=== PATIENT | female | born 1935 | race Hispanic/Latino ===

== ENCOUNTER 2017-09-07 15:25 | Inpatient (IN) | payer MEDICARE, OTHER ==
[~2017-09-07] VITALS: Ht 165.1 cm; Wt 57.2 kg
[2017-09-07] MEDS ORDERED: SODIUM CHLORIDE 0.9% 1000ML 1,000 ML IV ONE (16:00)
[2017-09-07 16:01] LABS: BASOPHILS # (AUTO) 0.1 (0.0-0.1); BASOPHILS % 0.6 % (0.0-1.0); EOSINOPHILS # (AUTO) 0.3 (0.0-0.4); EOSINOPHILS % 3.8 % (0.0-6.0); HEMATOCRIT 35.8 % (34.2-44.1); HEMOGLOBIN 11.7 g/dL (12.0-16.0); LYMPHOCYTES # (AUTO) 1.4 (1.0-3.2); LYMPHOCYTES % 18.4 % (18.0-39.1); MEAN CORPUSCULAR HEMOGLOBIN 27.2 pg (28-32); MEAN CORPUSCULAR HGB CONC 32.7 g/dL (31-35); MEAN CORPUSCULAR VOLUME 83.3 fL (81-99); MONOCYTES # (AUTO) 0.9 (0.2-0.8); NEUTROPHILS # (AUTO) 5.1 (2.1-6.9); NEUTROPHILS % 65.7 % (38.7-80.0); PLATELET COUNT 192 x10e3/uL (140-360); RED CELL DISTRIBUTION WIDTH 18.1 % (11.7-14.4)
[2017-09-07 16:15] LABS: ALANINE AMINOTRANSFERASE 14 IU/L (0-55); ALBUMIN 3.9 g/dL (3.5-5.0); ALBUMIN/GLOBULIN RATIO 1.1 (0.8-2.0); ALKALINE PHOSPHATASE 70 IU/L (40-150); ANION GAP 18.8 mmol/L (8-16); BLOOD UREA NITROGEN 16 mg/dL (7-26); BUN/CREATININE RATIO 20 (6-25); CALCIUM 9.6 mg/dL (8.4-10.2); CARBON DIOXIDE 21 mmol/L (22-29); CHLORIDE 100 mmol/L (98-107); CREATININE, SERUM 0.82 mg/dL (0.57-1.11); EST GLOMERULAR FILTRATION RATE > 60 ML/MIN (60-); GLUCOSE 151 mg/dL (74-118); PHOSPHORUS 3.4 MG/DL (2.3-4.7); POTASSIUM 4.8 mmol/L (3.5-5.1); SODIUM 135 mmol/L (136-145)
[2017-09-07] MEDS ORDERED: ONDANSETRON HCL INJ 2 MG/ML VIAL IV STA (16:21)
[2017-09-07] MEDS ORDERED: MORPHINE SULFATE INJ 4 MG/ML INJ IV STA (16:21)
[2017-09-07] MEDS ORDERED: DIAZEPAM 2 MG TAB PO ONE (17:15)
--- NOTE | 2017-09-07 17:18 | Diagnostic Imaging Report ---
PROCEDURE: A single AP view of the chest. COMPARISON: None. INDICATIONS: high blood pressure FINDINGS: Lines/tubes: None. Lungs: The lungs are hypoinflated. Perihilar vascular crowding and atelectasis. Mild central pulmonary venous congestion. Pleura: There is no pleural effusion or pneumothorax. Heart and mediastinum: The heart and the mediastinum are unremarkable. Significant aortic valve calcifications. Bones: No acute bony abnormality. IMPRESSION: Central pulmonary venous congestion. Dictated by: Juma Rao M.D. on 09/07/2017 at 17:23 Electronically approved by: Juma Rao M.D. on 09/07/2017 at 17:23
--- NOTE | 2017-09-07 18:42 | Diagnostic Imaging Report ---
History:Dizziness Comparison studies: None Technique: Axial images were obtained from the skull base to the vertex. Coronal and sagittal images reconstructed from the axial data. Intravenous contrast: None Findings: Scalp/skull: No abnormalities. Extra-axial spaces: No masses. No fluid collections. Brain sulci: Mildly prominent. Ventricles: Mild compensatory dilatation. No hydrocephalus. Parenchyma: No abnormal densities. No masses, hemorrhage, acute or chronic cortical vascular insults. Sellar/suprasellar region: No abnormalities. Craniocervical junction: Patent foramen magnum. No Chiari one malformation. Incidental findings: Atherosclerotic calcifications in the carotid siphons . Impression: No acute abnormalities. Mild age-related generalized volume loss. Signed by: Dr. Christopher Patiño M.D. on 09/07/2017 6:39 PM
[2017-09-07] MEDS ORDERED: ASPIRIN 81 MG CHEW TAB PO ONE (19:00)
[2017-09-07] MEDS ORDERED: ONDANSETRON HCL INJ 2 MG/ML VIAL IV PRN (19:00)
[2017-09-07 19:18] LABS: CREATINE KINASE 108 IU/L (29-168)
[2017-09-07] MEDS: SODIUM CHLORIDE 0.9% 1000ML 1,000 ML IV SCH (20:20)
[2017-09-07 20:53] VITALS: BP 147/66
[2017-09-07 21:00] VITALS: BP 147/66
[2017-09-07] MEDS ORDERED: DIAZEPAM 5 MG TAB PO PRN (21:15)
[2017-09-07] MEDS ORDERED: OMEPRAZOLE20 MG PO (21:45)
[2017-09-07] MEDS ORDERED: GLIMEPIRIDE2 MG PO (21:45)
[2017-09-07] MEDS ORDERED: CARVEDILOL12.5 MG PO (21:45)
[2017-09-07] MEDS ORDERED: BRILINTA90 MG PO (21:45)
[2017-09-07] MEDS ORDERED: METFORMIN HCL500 MG PO (21:45)
[2017-09-07] MEDS ORDERED: LOSARTAN POTASS25 MG PO (21:45)
[2017-09-07] MEDS ORDERED: AMLODIPINE BESYL5 MG PO (21:45)
[2017-09-07] MEDS ORDERED: GABAPENTIN300 MG PO (21:45)
[2017-09-07] MEDS ORDERED: CRESTOR10 MG PO (21:45)
[2017-09-07] MEDS ORDERED: TRADJENTA5 MG PO (21:45)
[2017-09-07] MEDS ORDERED: ARICEPT5 MG PO (21:45)
[2017-09-07] MEDS ORDERED: ASPIR-LOW81 MG PO (21:56)
[2017-09-07] MEDS ORDERED: LEVOTHYROXINE50 MCG PO (21:56)
[2017-09-07] MEDS ORDERED: namzaric PO (22:59)
[2017-09-08] VITALS (9 sets, daily range): BP systolic 126–147; BP diastolic 58–67
[2017-09-08] MEDS: SODIUM CHLORIDE 0.9% 1000ML 1,000 ML IV SCH ×3 (04:36→18:53)
[2017-09-08 05:27] LABS: BASOPHILS % 0.6 % (0.0-1.0); EOSINOPHILS # (AUTO) 0.2 (0.0-0.4); EOSINOPHILS % 3.7 % (0.0-6.0); HEMATOCRIT 32.3 % (34.2-44.1); HEMOGLOBIN 10.3 g/dL (12.0-16.0); LYMPHOCYTES # (AUTO) 1.2 (1.0-3.2); LYMPHOCYTES % 19.1 % (18.0-39.1); MEAN CORPUSCULAR HGB CONC 31.9 g/dL (31-35); MEAN CORPUSCULAR VOLUME 84.8 fL (81-99); MONOCYTES # (AUTO) 0.7 (0.2-0.8); MONOCYTES % 11.5 % (4.4-11.3); NEUTROPHILS # (AUTO) 4.2 (2.1-6.9); NEUTROPHILS % 64.9 % (38.7-80.0); PLATELET COUNT 171 x10e3/uL (140-360); RED BLOOD COUNT 3.81 x10e6/uL (3.6-5.1); RED CELL DISTRIBUTION WIDTH 18.3 % (11.7-14.4)
[2017-09-08 06:03] LABS: ALANINE AMINOTRANSFERASE 10 IU/L (0-55); ALBUMIN 3.2 g/dL (3.5-5.0); ALBUMIN/GLOBULIN RATIO 1.1 (0.8-2.0); ALKALINE PHOSPHATASE 64 IU/L (40-150); ANION GAP 14.3 mmol/L (8-16); BLOOD UREA NITROGEN 13 mg/dL (7-26); BUN/CREATININE RATIO 17 (6-25); CALCIUM 8.4 mg/dL (8.4-10.2); CARBON DIOXIDE 21 mmol/L (22-29); CHLORIDE 109 mmol/L (98-107); CREATINE KINASE 73 IU/L (29-168); CREATININE, SERUM 0.75 mg/dL (0.57-1.11); EST GLOMERULAR FILTRATION RATE > 60 ML/MIN (60-); GLUCOSE 127 mg/dL (74-118); POTASSIUM 4.3 mmol/L (3.5-5.1); SODIUM 140 mmol/L (136-145)
[2017-09-08 08:07] LABS: CHOL/HDL RATIO 2.1 (3.0-3.6)
--- NOTE | 2017-09-08 10:31 | Consultation ---
DATE OF CONSULTATION: September 08, 2017 CARDIOLOGY CONSULTATION REQUESTING PHYSICIAN: Dr. Bryon Estevez REASON FOR CONSULTATION: Syncope. HPI: This is an 82-year-old female that presented with syncope. According to the patient and daughter at the bedside, she was having difficulty with ambulation and right leg pain and having difficulty with movement. The daughter stated yesterday, she suddenly collapsed, passing out. She was brought over for evaluation. She has a history of CAD with stent placement in the past. She denied any chest pain, any shortness of breath, any diaphoresis or headache. She also stated she never had this episode before, it just happened 1 time. PAST MEDICAL HISTORY: Hypertension, hypothyroidism, diabetes, hyperlipidemia, CAD. PAST SURGICAL HISTORY: PCI with cardiac stents. FAMILY HISTORY: Noncontributory. SOCIAL HISTORY: No smoking. No drinking. She lives at home with family. MEDICATIONS: See med list. ALLERGIES: SHE IS NOT ALLERGIC TO ANY MEDICATION. REVIEW OF SYSTEMS: Negative except those mentioned above. PHYSICAL EXAMINATION VITALS: Temperature 97, heart rate 66, blood pressure 147/67, respirations 20, oxygen saturation 99% on room air. GENERAL: She is awake, alert and oriented times 3. HEENT: Mucous membranes moist. NECK: Supple. LUNGS: Bilaterally clear to auscultation. CARDIOVASCULAR: S1 and S2 present. ABDOMEN: Soft. NEUROLOGIC: Intact. EXTREMITIES: On the left with no edema. On the right with tenderness on the right calf. LABS: Sodium 140, potassium 4.3, chloride 109, CO2 21, BUN 13, creatinine 0.75. Glucose 127. White blood cells 6.45, hemoglobin 10.3, hematocrit 32.3, platelets 171. IMPRESSION 1. Syncope. 2. Possible seizures. 3. Hypertension. 4. Coronary artery disease with history of stents. 5. Diabetes. 6. Right leg pain with edema. ASSESSMENT AND PLAN 1. We will go ahead and check serial cardiac enzymes. 2. Get echocardiogram. 3. Check venous Doppler on the right leg. 4. Will get bilateral carotid Doppler to rule out any occlusion. 5. She is being followed up by neurology. Will continue her home medications. 6. Further cardiac workup pending clinical course. Thank you for this consultation. Dictated by Tabatha Flores NP. Job#: [id number]
--- NOTE | 2017-09-08 12:11 | History and Physical ---
PRIMARY CARE PHYSICIAN: Dr. Mindy Landis CHIEF COMPLAINT: Passing out. HISTORY OF PRESENT ILLNESS: This is an 82-year-old woman with a history of coronary artery disease with history of stents, 3 stents with 2 stents in the last year, now developing dizziness while waiting on her daughter at her daughter's doctor visit and subsequently the patient passed out in the chair for 2 minutes. Came around and confused. The patient has never had this in the past. She did not fall. Denies any chest pain. Denies any recent infection. Denies any other symptoms. Brought to the hospital. Has right leg swelling. Ultrasound was performed and negative for DVT. Leg swelling has resolved. PAST MEDICAL HISTORY: Hypertension, hyperlipidemia, dementia, diabetes mellitus, arthritis, coronary artery disease, status post 3 coronary stents, 2 in 2017 and 1 about 6 years ago. PAST SURGICAL HISTORY: Eyes, ears and throat. ALLERGIES: PER ELECTRONIC MEDICAL RECORD. FAMILY HISTORY/SOCIAL HISTORY: Patient is . She has 2 children. No alcohol, illicits or cigarettes. MEDICATIONS: Per electronic medical record. REVIEW OF SYSTEMS: Currently, denies any dizziness, chest pain, shortness of breath, fever, chills, sweats, nausea, vomiting, diarrhea. PHYSICAL EXAMINATION VITAL SIGNS: Have been reviewed. GENERAL: A tired-appearing woman resting in bed. HEENT: Anicteric. Pupils respond to light. No oral lesions. CARDIOVASCULAR: Normal S1 and S2. LUNGS: Moderate breath sounds. ABDOMEN: Soft, nontender and nondistended. EXTREMITIES: No edema or calf tenderness. NEUROLOGICAL: Alert and appropriate. Moving all extremities. SKIN: Dry. PSYCHIATRIC: Flat affect. LABS: Reviewed. MEDICATIONS: Reviewed. ASSESSMENT: An 82-year-old woman with: 1. Syncope. 2. Coronary artery disease with history of stents. 3. Diabetes mellitus. 4. Hypertension. 5. Hyperlipidemia. 6. Metabolic acidosis. PLAN 1. Obtain ultrasound of the carotids. Obtain 2-D echocardiogram. Obtain orthostatic vital signs. Check TSH. Physical therapy consultation. 2. Follow up EEG and neurology consultation. 3. Check hemoglobin A1c and lipid panel. Will use diabetic diet. 4. Does have a history of coronary artery disease. Stress test is a consideration. Consult cardiology. 5. Monitor closely. 6. Will use Lovenox and Pepcid for prophylaxis. 7. Disposition. Follow up testing. Job#: [id number] [place]
--- NOTE | 2017-09-08 13:07 | Diagnostic Imaging Report ---
EXAMINATION: MRI of the brain without contrast. HISTORY: Syncope and possible seizure COMPARISON: None TECHNIQUE: Pre-contrast: Sagittal T1; axial T1-IR, MPGR, DWI, FLAIR. Thin section coronals of the temporal lobes: FLAIR, T2. FINDINGS: Mass: None. Encephalomalacia: No areas. Ischemic changes: Focal T2 FLAIR hyperintensity in the right superior frontal gyrus juxtacortical white matter, may represent sequela from remote insult. Few scatter T2 and FLAIR hyperintense foci, most likely minimal/age appropriate chronic microvascular ischemic changes. Calcification/iron: No abnormal deposits. Hippocampi: No atrophy or gliosis. Normal fornices. Vascular: No obvious vascular malformation. Normal flow voids in major arteries and veins.[ Curry matter: No cortical migration anomalies. Other: Brain volume: Normal for age. Ventricles: No hydrocephalus or displacement. Foramen Magnum: Unremarkable. Sella: Unremarkable. Skull: No focal lesions. Sinuses/mastoids: Opacification of the left middle ear/mastoid air cells, likely effusion, minimal opacification of the tip of the right mastoids and middle ear is also noted. IMPRESSION: 1. No intracranial mass or mesial temporal sclerosis. 2. Age related minimal chronic microvascular ischemic changes. 3. Opacification of the left greater than right mastoid air cells/middle ear as detailed above. Signed by: Dr. Allyson Kapadia M.D. on 09/08/2017 1:03 PM
[2017-09-08 14:08] LABS: CREATINE KINASE 72 IU/L (29-168)
[2017-09-08] MEDS ORDERED: CARVEDILOL 12.5 MG TAB PO SCH (17:00)
[2017-09-08] MEDS ORDERED: TICAGRELOR 90 MG TABLET PO SCH ×3 (17:00→21:00)
--- NOTE | 2017-09-08 20:51 | Electroencephalogram ---
DATE OF STUDY: September 08, 2017 REQUESTING PHYSICIAN: Dr. Charlette Chavez PATIENT HISTORY: This 82-year-old woman with history of syncope versus seizures, having an EEG for evaluation of epileptiform activity. The patient is not taking any medications that might affect the EEG. TECHNIQUE: This is a routine, portable EEG, recorded digitally, using the international 10/20 electrode placement system, and done in the inpatient setting with the patient awake. The EEG is technically limited because of muscle and electrical artifact. DESCRIPTION: Well-organized, well-sustained 8 Hz activity was best seen symmetrically in the posterior head regions. No focal or epileptiform activity is recorded. Sleep is not recorded. Photic stimulation does produce a driving response. Hyperventilation is not performed. INTERPRETATION: This electroencephalogram is normal with the patient awake. No epileptiform discharges are seen. Job#: [id number]
[2017-09-08] MEDS ORDERED: GABAPENTIN 300 MG CAP PO SCH (21:00)
[2017-09-08] MEDS ORDERED: SIMVASTATIN 20 MG TAB PO SCH (21:00)
[2017-09-08] MEDS ORDERED: SIMVASTATIN 40 MG TAB PO SCH (21:00)
[2017-09-08 21:25] LABS: BILIRUBIN,URINE NEGATIVE (NEGATIVE); CLARITY,URINE CLEAR (CLEAR); COLOR,URINE YELLOW (YELLOW); KETONES,URINE NEGATIVE (NEGATIVE); LEUKOCYTE ESTERASE ,URINE TRACE (NEGATIVE); NITRITE,URINE NEGATIVE (NEGATIVE); PROTEIN,URINE DIPSTICK NEGATIVE (NEGATIVE); URINE UROBILINOGEN 0.2 mg/dL (0.2 - 1)
[2017-09-08 21:37] LABS: BACTERIA,URINE MODERATE /HPF; EPITHELIAL CELLS,URINE RARE /LPF; RBC,URINE 0-5 /HPF (0-5); WBC,URINE (MAN) 0-5 /HPF (0-5)
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
[2017-09-09 00:15] VITALS: BP 120/58
[2017-09-09] MEDS: SODIUM CHLORIDE 0.9% 1000ML 1,000 ML IV SCH (02:53)
[2017-09-09 04:00] VITALS: BP 134/63
[2017-09-09] MEDS ORDERED: CEFTRIAXONE SOD 1 GM VIAL IV SCH (06:00)
[2017-09-09] MEDS ORDERED: KEFLEX500 MG PO (06:00)
[2017-09-09] MEDS ORDERED: LEVOTHYROXINE SODIUM 50 MCG TAB PO SCH ×2 (06:00)
[2017-09-09] MEDS ORDERED: VALIUM5 MG PO (06:32)
--- NOTE | 2017-09-09 07:01 | Discharge Summary ---
PRINCIPAL DIAGNOSES 1. Syncope, likely vasovagal. 2. Coronary artery disease with a history of stent. 3. Diabetes mellitus with hemoglobin A1c and LDL of 7.4 and 44 respectively, and triglycerides 96. 4. Urinary tract infection. SECONDARY DIAGNOSES 1. Hypertension. 2. Hyperlipidemia. CHIEF COMPLAINT: Passing out. HISTORY OF PRESENT ILLNESS: The patient passed out. The patient had a syncopal episode and was brought to the hospital. Refer to the H and P for further details. HOSPITAL COURSE: For the syncope, orthostatic vital signs were obtained, which were normal. The patient was found to have a urinary tract infection and was started on ceftriaxone. I will discharge her with Keflex. EEG and MRI of the brain were both negative. The patient is doing better. She has received physical therapy and currently appropriate for discharge. DISCHARGE MEDICATIONS: Per electronic medical record and include Keflex 500 mg daily. The patient is already on aspirin and statin. FOLLOWUP: Primary care doctor in 1 week. CONDITION ON DISCHARGE: Stable and improving. DISCHARGE LOCATION: Home. JAZMIN KELLEY MD Job#: [id number] [place]
[2017-09-09 07:30] VITALS: BP 144/64
[2017-09-09] MEDS ORDERED: HOME MEDICATION--PATIENTS OWN PO SCH (09:00)
[2017-09-09] MEDS ORDERED: LOSARTAN POTASSIUM 25 MG TAB PO SCH (09:00)
[2017-09-09] MEDS ORDERED: PANTOPRAZOLE SOD 40 MG TABEC PO SCH ×2 (09:00)
[2017-09-09] MEDS ORDERED: ASPIRIN 81 MG CHEW TAB PO SCH (09:00)
[2017-09-09] MEDS ORDERED: AMLODIPINE BESYLATE 5 MG TAB PO SCH (09:00)
== END 2017-09-09 09:01 | disposition home or self-care (01) | DRG 312 ==
LOC: EDBD 15:25 → ER 15:25 → ERHOLD 18:53 → MED/SURG2 21:02
PROVIDERS: ADMIT Internal Medicine; ATTEND Internal Medicine
DX: R55 Syncope and collapse (principal); N39.0 Urinary tract infection, site not specified; E87.2 Acidosis; E11.9 Type 2 diabetes mellitus without complications; I25.10 Atherosclerotic heart disease of native coronary artery without angina pectoris; I10 Essential (primary) hypertension; E78.5 Hyperlipidemia, unspecified; Z95.5 Presence of coronary angioplasty implant and graft; F03.90 Unspecified dementia, unspecified severity, without behavioral disturbance, psychotic disturbance, mood disturbance, and anxiety; H91.93 Unspecified hearing loss, bilateral
CPT/HCPCS: 36415; 70450; 70551; 71045; 80053; 80061; 81001; 82550; 82553; 82948; 83036; 83735; 84100; 84443; 84484; 85025; 93005; 93306; 93880; 93971; 95812; 96361; 99284; J0696; J2270; J2405; J7030